=== PATIENT | male | born 1995 | race Caucasian/White ===

== ENCOUNTER 2024-05-21 12:15 | Emergency (ER) | payer OTHER ==
[~2024-05-21] VITALS: Wt 107.5 kg
[2024-05-21 13:03] LABS: BASO # 0.06 K/mm3 (0.02-0.10); EOS # 0.25 K/mm3 (0.04-0.40); EOS % 2.8 % (0.0-4.0); HEMATOCRIT 46.8 % (42.0-52.0); HEMOGLOBIN 16.5 g/dL (13.5-18.0); LYMPH# 2.34 K/mm3 (1.50-4.00); MEAN CELL VOLUME 85 fl (78-100); MEAN CORPUSCULAR HEMOGLOBIN 30 pg (27-31); MEAN CORPUSCULAR HGB CONC 35 g/dL (33-37); MEAN PLATELET VOLUME 10.5 fl (7.4-10.4); MONO # 0.78 K/mm3 (0.20-0.80); NEU # 5.38 K/mm3 (1.40-6.50); PLATELET COUNT 252 K/mm3 (130-400); RED BLOOD COUNT 5.51 M/mm3 (4.20-5.60); RED CELL DISTRIBUTION WIDTH 12.3 % (11.5-14.5); WHITE BLOOD COUNT 8.9 K/mm3 (4.8-10.8)
[2024-05-21] MEDS ORDERED: Iohexol 300 - 100 ML VIAL IV ONE (13:14)
[2024-05-21] MEDS ORDERED: Ketorolac 30 MG/ML VIAL IV ONE (13:15)
[2024-05-21 13:34] LABS: ALBUMIN 5.1 g/dL (3.5-5.0)
[2024-05-21 13:35] LABS: CALCIUM 10.3 mg/dL (8.3-10.5)
[2024-05-21 13:36] LABS: TOTAL PROTEIN 7.2 g/dL (6.4-8.3)
[2024-05-21 13:38] LABS: TOTAL BILIRUBIN 0.6 mg/dL (0.2-1.2)
[2024-05-21] MEDS ORDERED: Ondansetron 4 MG/2 ML VIAL IV ONE (13:45)
[2024-05-21] MEDS ORDERED: Morphine 4 MG/ML VIAL IV ONE (13:45)
[2024-05-21] MEDS ORDERED: NORCO 325 MG-51 TA1 PO (14:07)
[2024-05-21] MEDS ORDERED: ZOFRAN ODT4 MG PO (14:07)
[2024-05-21 14:28] VITALS: BP 96/54
== END 2024-05-21 14:30 | disposition home or self-care (01) ==
LOC: ED 12:15
PROVIDERS: Family Medicine
DX: N13.2 Hydronephrosis with renal and ureteral calculous obstruction (principal); R74.01 Elevation of levels of liver transaminase levels; F17.290 Nicotine dependence, other tobacco product, uncomplicated
CPT/HCPCS: J1885; J2270; J2405; J7120; Q9967